=== PATIENT | male | born 1935 | race Caucasian/White ===

== ENCOUNTER 2019-05-10 13:35 | Day surgery (SDC) | payer MEDICARE, OTHER ==
[~2019-05-10] VITALS: Ht 175.3 cm; Wt 103.3 kg
[~2019-05-10 13:35] MED LIST: ALBU18HF2 INH; ALLO300T2 PO; ASPI-1265 PO; ATEN50TA PO; FAMO20TA8 PO; GUAI100L97 PO; SIMV40TA4 PO; TAMS0.4C32 PO
[2019-05-10 13:55] VITALS: BP 151/76
[2019-05-10] MEDS ORDERED: normal saline 1000ml 1,000 ML IV SCH ×2 (14:00→16:00)
[2019-05-10] MEDS ORDERED: cefazolin/dext.iso 2gm/50ml 50 ML IV ONE (14:00)
[2019-05-10] MEDS ORDERED: vancomycin/NS 1 GM ADD-VANTAGE 250 ML X 1 DOSE IV ONE (14:05)
[2019-05-10 14:23] LABS: BASOPHILS % (AUTO) 0.3 % (0-1); EOSINOPHILS # (AUTO) 0.2 X10'3 (0-0.9); EOSINOPHILS % (AUTO) 3.2 % (0-6); HEMATOCRIT 46.3 % (42.0-52.0); HEMOGLOBIN 16.1 g/dl (14.0-17.9); LYMPHOCYTES % (AUTO) 29.1 % (21-51); MEAN CORPUSCULAR HEMOGLOBIN 33.4 PG (27.0-31.0); MEAN CORPUSCULAR HGB CONC 34.7 g/dL (33.0-36.5); MEAN CORPUSCULAR VOLUME 96.4 FL (78-98); MEAN PLATELET VOLUME 7.4 FL (7.4-10.4); MONOCYTES # (AUTO) 0.5 X10'3 (0-0.9); MONOCYTES % (AUTO) 7.6 % (2-12); NEUTROPHILS # (AUTO) 4.2 X10'3 (1.8-7.7); NEUTROPHILS % (AUTO) 59.8 % (42-75); PLATELET COUNT 128 X10'3 (140-440); RED BLOOD COUNT 4.81 X10'6 (4.70-6.10); RED CELL DISTRIBUTION WIDTH 14.4 % (11.5-14.5)
[2019-05-10] MEDS ORDERED: vancomycin 1,000mg inj ONE ×2 (14:23→14:35)
[2019-05-10] MEDS ORDERED: ceFAZolin 1000mg inj ONE (14:23)
[2019-05-10] MEDS ORDERED: ceFAZolin 1GM/D5W- ADD-VANTAGE 50 ML IV ONE (14:23)
[2019-05-10] MEDS ORDERED: LIDOcaine 1% W/epiNEPHrine 1:100,000 20ml vial ONE (14:23)
[2019-05-10 14:26] LABS: ALBUMIN 4.1 G/DL (3.4-5.0); ANION GAP 11 (8-16); BLOOD UREA NITROGEN 16 MG/DL (7-18); BUN/CREATININE RATIO 15.8 (5.4-32.0); CALCIUM 8.7 MG/DL (8.5-10.1); CHLORIDE 108 MMOL/L (99-107); CREATININE 1.01 MG/DL (0.60-1.10); GLUCOSE 121 MG/DL (70-104); MAGNESIUM 1.8 MG/DL (1.5-2.4); POTASSIUM 4.1 MMOL/L (3.5-5.1); SODIUM 143 MMOL/L (135-145); TOTAL CARBON DIOXIDE 24.1 MMOL/L (24-32); eGFR 70 ML/MIN
[2019-05-10] MEDS ORDERED: fentaNYL/PF 50MCG/1 ML 2ML syringe ONE (14:41)
[2019-05-10] MEDS ORDERED: midazolam 2 mg/2 ml injection ONE (14:41)
[2019-05-10 15:39] VITALS: BP 128/48
[2019-05-10 15:59] VITALS: BP 148/57
[2019-05-10] MEDS ORDERED: HYDROcodone/acetaminophen 5mg/325mg tablet PO PRN (16:00)
[2019-05-10] MEDS ORDERED: HYDROcodone/acetaminophen 10/325mg tab PO PRN (16:00)
[2019-05-10] MEDS ORDERED: ketorolac tromethamine 15mg/ml inj. IV ONE (16:05)
[2019-05-10 16:14] VITALS: BP 140/66
[2019-05-10 16:29] VITALS: BP 137/55
[2019-05-10 16:45] VITALS: BP 132/57
== END 2019-05-10 17:15 | disposition home or self-care (01) ==
LOC: SSTAY O 13:35
PROVIDERS: ATTEND Internal Medicine Cardiovascular Disease
DX: Z45.010 Encounter for checking and testing of cardiac pacemaker pulse generator [battery] (principal); I49.5 Sick sinus syndrome; I25.10 Atherosclerotic heart disease of native coronary artery without angina pectoris; Z95.1 Presence of aortocoronary bypass graft; Z79.899 Other long term (current) drug therapy; Z79.82 Long term (current) use of aspirin
CPT/HCPCS: 33228; 36415; 80048; 83735; 85025; 85610; 99152; 99153; C1785; J0690; J2250; J3010; J3370; J7030; 93005; A4620

== ENCOUNTER → 2020-07-04 | Emergency (ER) | payer MEDICARE, OTHER ==
[~2020-07-04] VITALS: Ht 175.3 cm; Wt 110.0 kg
[~2020-07-04] MED LIST changes: -ALBU18HF2 INH; -FAMO20TA8 PO; -GUAI100L97 PO; +LISI-604 PO; +SIMV-45 PO; -SIMV40TA4 PO; +lisinopril 10 MG tablet PO ONE; +lisinopril 5mg tablet PO ONE
[2020-07-04 23:12] LABS: BASOPHILS % (AUTO) 0.3 % (0-1); EOSINOPHILS # (AUTO) 0.1 X10'3 (0-0.9); EOSINOPHILS % (AUTO) 1.9 % (0-6); HEMATOCRIT 44.6 % (42.0-52.0); HEMOGLOBIN 15.4 g/dl (14.0-17.9); LYMPHOCYTES # (AUTO) 2.1 X10'3 (1.1-4.8); LYMPHOCYTES % (AUTO) 30.2 % (21-51); MEAN CORPUSCULAR HEMOGLOBIN 33.9 PG (27.0-31.0); MEAN CORPUSCULAR HGB CONC 34.5 g/dL (33.0-36.5); MEAN CORPUSCULAR VOLUME 98.3 FL (78-98); MEAN PLATELET VOLUME 7.3 FL (7.4-10.4); MONOCYTES # (AUTO) 0.5 X10'3 (0-0.9); MONOCYTES % (AUTO) 7.5 % (2-12); NEUTROPHILS # (AUTO) 4.2 X10'3 (1.8-7.7); NEUTROPHILS % (AUTO) 60.1 % (42-75); PLATELET COUNT 126 X10'3 (140-440); RED BLOOD COUNT 4.54 X10'6 (4.70-6.10); RED CELL DISTRIBUTION WIDTH 14.7 % (11.5-14.5); WHITE BLOOD COUNT 6.9 X10'3 (4.5-11.0)
[2020-07-04 23:25] LABS: ALANINE AMINOTRANSFERASE 29 U/L (12-78); ALBUMIN 3.8 G/DL (3.4-5.0); ALBUMIN/GLOBULIN RATIO 1.1 (1.1-1.5); ALKALINE PHOSPHATASE 84 IU/L (46-116); ANION GAP 8 (8-16); ASPARTATE AMINO TRANSFERASE 11 U/L (10-37); BILIRUBIN,TOTAL 0.6 MG/DL (0.1-1.0); BLOOD UREA NITROGEN 17 MG/DL (7-18); BUN/CREATININE RATIO 16.7 (5.4-32.0); CALCIUM 8.6 MG/DL (8.5-10.1); CHLORIDE 105 MMOL/L (99-107); CREATININE 1.02 MG/DL (0.60-1.10); GLUCOSE 144 MG/DL (70-104); MAGNESIUM 1.9 MG/DL (1.5-2.4); POTASSIUM 4.1 MMOL/L (3.5-5.1); SODIUM 139 MMOL/L (135-145); TOTAL CARBON DIOXIDE 26.4 MMOL/L (24-32); TOTAL PROTEIN 7.2 G/DL (6.4-8.2); eGFR 69 ML/MIN
[2020-07-05 00:08] VITALS: BP 161/69
== END | disposition home or self-care (01) ==
LOC: ER 20:46
DX: I10 Essential (primary) hypertension (principal); I25.10 Atherosclerotic heart disease of native coronary artery without angina pectoris; Z95.1 Presence of aortocoronary bypass graft; Z95.0 Presence of cardiac pacemaker; Z79.899 Other long term (current) drug therapy; Z79.82 Long term (current) use of aspirin
CPT/HCPCS: 36415; 80053; 83735; 84484; 85025; 93005; 99284

== ENCOUNTER 2023-02-16 21:25 | Emergency (ER) | payer MEDICARE, OTHER ==
[~2023-02-16] VITALS: Ht 175.3 cm; Wt 101.2 kg
[~2023-02-16 21:25] MED LIST changes: -LISI-604 PO; +LISI5TAB22 PO; -lisinopril 10 MG tablet PO ONE; -lisinopril 5mg tablet PO ONE
[2023-02-16 21:26] VITALS: BP 107/65
[2023-02-17] MEDS ORDERED: TETanus/Pertussis (Acell)/Diphther VAC/PF (Tdap-Adult) 0.5ml syringe IMVAC ONE (01:55)
[2023-02-17] MEDS ORDERED: acetaminophen w/codeine (30MG) #3 tablet PO ONE (01:55)
[2023-02-17] MEDS: celeCOXIB 100mg capsule PO SCH ×2 (02:19→02:24)
--- NOTE | 2023-02-17 02:29 | NUR ---
RT ELBOW WOUND CLEANDED
== END 2023-02-17 02:31 | disposition home or self-care (01) ==
LOC: ER 21:26
DX: S46.911A Strain of unspecified muscle, fascia and tendon at shoulder and upper arm level, right arm, initial encounter (principal); M70.31 Other bursitis of elbow, right elbow; I11.0 Hypertensive heart disease with heart failure; Z79.899 Other long term (current) drug therapy; W19.XXXA Unspecified fall, initial encounter; Y93.89 Activity, other specified; Y92.89 Other specified places as the place of occurrence of the external cause; Y99.8 Other external cause status
CPT/HCPCS: 73030; 90471; 90715; 99283